=== PATIENT | female | born 1965 | race Caucasian/White ===

== ENCOUNTER 2016-05-31 17:47 | Emergency (ER) | payer MEDICAID ==
[2016-05-31] MEDS ORDERED: ONDANSETRON 4 MG VIAL ONE (20:56)
[2016-05-31] MEDS ORDERED: MORPHINE 4 MG/ML SYR ONE ×2 (20:56→23:37)
[2016-05-31] MEDS ORDERED: SODIUM CHLORIDE 0.9% 1,000 ML ONE (23:32)
== END 2016-06-01 01:02 | disposition home or self-care (01) ==
LOC: ER 17:47
CPT/HCPCS: 36415; 71020; 80053; 81001; 82553; 83605; 84484; 85025; 87040; 87077; 87088; 87186; 93005; 96361; 96365; 96366; 96375; 96376